=== PATIENT | female | born 1950 | race Caucasian/White ===

== ENCOUNTER 2021-11-01 04:03 | Day surgery (SDC) | payer BC ==
[2021-10-30 12:14] VITALS: BMI 32.3
[2021-11-01] MEDS ORDERED: BUPIVACAINE HCL/PF 0.75% 10 ML VIAL ONE (07:28)
[2021-11-01] MEDS ORDERED: LIDOCAINE HCL/PF 1% SDV 5ML VIAL ONE (07:29)
[2021-11-01] MEDS ORDERED: BUPIVACAINE HCL/PF 0.75% 10 ML VIAL NR ONE (08:58)
[2021-11-01] MEDS ORDERED: IOHEXOL 180 MG/1 ML ML IJ ONE (08:59)
[2021-11-01] MEDS ORDERED: LIDOCAINE 1% P/F 10 MG/ML VIAL PNB ONE (09:00)
[2021-11-01 10:22] VITALS: TEMP 97.1
[2021-11-01 10:25] VITALS: BP 140/74; PULSE 66
== END 2021-11-01 10:00 | disposition home or self-care (01) ==
LOC: JASU-SURG 04:03
PROVIDERS: ATTEND Pain Medicine Pain Medicine
PROC: 3E0T33Z Introduction of Anti-inflammatory into Peripheral Nerves and Plexi, Percutaneous Approach (ICD-10-PCS; 2021-11-01)
PROC: 3E0T3BZ Introduction of Anesthetic Agent into Peripheral Nerves and Plexi, Percutaneous Approach (ICD-10-PCS; principal; 2021-11-01 08:30)
DX: M47.816 Spondylosis without myelopathy or radiculopathy, lumbar region (principal)
CPT/HCPCS: 76000-TC-FY

== ENCOUNTER 2021-11-26 04:47 | Day surgery (SDC) | payer BC ==
[2021-11-22 10:19] VITALS: BMI 32.3
[~2021-11-26 04:47] MED LIST: BUPIVACAINE HCL/PF 0.75% 10 ML VIAL NR ONE; IOHEXOL 180 MG/1 ML ML IJ ONE; LIDOCAINE HCL 1% PRESERVATIVE FREE - 30ML VIAL IJ ONE
[2021-11-26] MEDS ORDERED: BUPIVACAINE HCL/PF 0.5% (5MG/ML) 10 ML VIAL ONE (07:08)
[2021-11-26] MEDS ORDERED: DEXAMETHASONE SOD PHOSPHATE 10 MG/1 ML VIAL ONE (07:08)
[2021-11-26] MEDS ORDERED: BUPIVACAINE HCL/PF 0.75% 10 ML VIAL ONE (07:08)
[2021-11-26] MEDS ORDERED: LIDOCAINE HCL/PF 1% SDV 5ML VIAL ONE (07:08)
[2021-11-26] MEDS ORDERED: LIDOCAINE HCL 1% PRESERVATIVE FREE - 30ML VIAL IJ ONE (09:11)
[2021-11-26] MEDS ORDERED: IOHEXOL 180 MG/1 ML ML IJ ONE (09:13)
[2021-11-26] MEDS ORDERED: BUPIVACAINE HCL/PF 0.75% 10 ML VIAL NR ONE (09:20)
[2021-11-26 10:46] VITALS: BP 117/76; PULSE 71; TEMP 98
== END 2021-11-26 10:15 | disposition home or self-care (01) ==
LOC: JASU-SURG 04:47
PROVIDERS: ATTEND Pain Medicine Pain Medicine
PROC: 3E0T33Z Introduction of Anti-inflammatory into Peripheral Nerves and Plexi, Percutaneous Approach (ICD-10-PCS; 2021-11-26)
PROC: 3E0T3BZ Introduction of Anesthetic Agent into Peripheral Nerves and Plexi, Percutaneous Approach (ICD-10-PCS; principal; 2021-11-26 08:30)
DX: M47.816 Spondylosis without myelopathy or radiculopathy, lumbar region (principal)
CPT/HCPCS: 76000-TC-FY; J1100

== ENCOUNTER 2023-02-19 11:50 | Inpatient (IN) | payer BC ==
[2023-02-19] MEDS ORDERED: VANCOMYCIN 1 GM in D5W (PRE-DOCKED) 1,000 MG/250 ML (RESTRICTED TO ID ONLY IVPB ONE (13:01)
[2023-02-19] MEDS ORDERED: VANCOMYCIN/WATER FOR INJ (PEG) 1,000 MG/200 ML BAG IVPB ONE (13:06)
[2023-02-19] MEDS ORDERED: morphine CARPU-JECT 4 MG/1 ML DISP.SYRIN IVPUSH ONE (13:37)
[2023-02-19 13:43] LABS: BASO % 0.6 % (0-2.0); EOS % 2.3 % (0-4.5); HEMATOCRIT 39.5 % (32.4-45.2); HEMOGLOBIN 13.4 GM/dL (10.7-15.3); LYMPH % 13.3 % (8-40); MCH 26.3 pg (25.7-33.7); MCHC 33.9 g/dl (32.0-36.0); MEAN CELL VOLUME 77.6 fl (80-96); MEAN PLT VOLUME 7.8 fl (7.5-11.1); MONO % 7.3 % (3.8-10.2); NEUT % 76.5 % (42.8-82.8); PLATELET COUNT 307 10^3/uL (134-434); RBC 5.09 M/mm3 (3.60-5.2); RDW 13.9 % (11.6-15.6)
[2023-02-19 14:03] LABS: ALBUMIN 3.7 g/dl (3.4-5.0); BLOOD UREA NITROGEN 11.7 mg/dL (7-18); CALCIUM 9.6 mg/dL (8.5-10.1)
[2023-02-19 14:07] LABS: CREATININE 0.7 mg/dL (0.55-1.3)
[2023-02-19 14:08] LABS: TOT PROT 7.7 g/dl (6.4-8.2)
[2023-02-19 14:11] LABS: BILIRUBIN,TOTAL 0.8 mg/dL (0.2-1)
[2023-02-19] MEDS ORDERED: KETOROLAC TROMETHAMINE 15 MG/ML VIAL IVPUSH PRN (14:50)
[2023-02-19] MEDS ORDERED: traMADol HCL 50 MG TABLET PO PRN (14:50)
[2023-02-19 16:09] VITALS: BMI 30.9
[2023-02-19] MEDS ORDERED: INSULIN (LEVEMIR) 100 UNITS/ML UNITS SQ ONE (18:06)
[2023-02-19] MEDS ORDERED: INSULIN (NOVOLOG) ASPART 100 UNITS/ML 10ML VIAL ONE (18:07)
[2023-02-19] MEDS: traMADol HCL 50 MG TABLET PO PRN (18:07)
[2023-02-19] MEDS ORDERED: ATORVASTATIN CA 10 MG TABLET (FP) PO SCH (22:00)
[2023-02-19] MEDS: ACETAMINOPHEN 325 MG TABLET (FP) PO PRN (22:41)
[2023-02-19] MEDS ORDERED: VANCOMYCIN/WATER FOR INJ (PEG) 1,000 MG/200 ML BAG IVPB SCH (23:00)
[2023-02-20] MEDS: traMADol HCL 50 MG TABLET PO PRN ×2 (05:54→21:23)
[2023-02-20] MEDS ORDERED: BUPIVACAINE HCL/PF 0.75% 10 ML VIAL ONE (07:14)
[2023-02-20] MEDS ORDERED: LIDOCAINE HCL/PF 1% SDV 5ML VIAL ONE (07:14)
[2023-02-20] MEDS ORDERED: BUPIVACAINE HCL/PF 0.5% (5MG/ML) 10 ML VIAL ONE (07:14)
[2023-02-20] MEDS ORDERED: DEXAMETHASONE SOD PHOSPHATE 10 MG/1 ML VIAL ONE (07:15)
[2023-02-20 07:37] LABS: BASO % 0.6 % (0-2.0); EOS % 4.1 % (0-4.5); HEMOGLOBIN 11.7 GM/dL (10.7-15.3); MCH 26.5 pg (25.7-33.7); MCHC 34.3 g/dl (32.0-36.0); MEAN CELL VOLUME 77.2 fl (80-96); MONO % 9.8 % (3.8-10.2); NEUT % 72.5 % (42.8-82.8); PLATELET COUNT 250 10^3/uL (134-434); RDW 13.6 % (11.6-15.6); WHITE BLOOD COUNT 7.2 K/mm3 (4.0-10.0)
[2023-02-20 07:56] LABS: POTASSIUM 3.9 mmol/L (3.5-5.1)
[2023-02-20 08:03] LABS: BLOOD UREA NITROGEN 11.5 mg/dL (7-18); MAGNESIUM 1.8 mg/dL (1.8-2.4)
[2023-02-20 08:06] LABS: CREATININE 0.5 mg/dL (0.55-1.3)
[2023-02-20 08:08] LABS: BILIRUBIN,TOTAL 0.9 mg/dL (0.2-1); TOT PROT 6.4 g/dl (6.4-8.2)
[2023-02-20] MEDS ORDERED: LEVOTHYROXINE NA 100 MCG TABLET (FP) PO SCH (10:00)
[2023-02-20] MEDS: ACETAMINOPHEN 325 MG TABLET (FP) PO PRN (10:34)
[2023-02-20] MEDS: ENOXAPARIN NA (PORCINE) 40 MG/0.4 ML DISP.SYRIN SQ SCH ×2 (10:35→11:21)
[2023-02-20] MEDS ORDERED: VANCOMYCIN/WATER FOR INJ (PEG) 1,000 MG/200 ML BAG IVPB SCH (11:00)
[2023-02-20] MEDS ORDERED: LEVOTHYROXINE NA 88 MCG TABLET (FP) PO SCH (11:17)
[2023-02-20] MEDS ORDERED: LIDOCAINE HCL 1%, 10 MG/ML (20ML VIAL) ONE (12:42)
[2023-02-20] MEDS ORDERED: ONDANSETRON 4 MG/2 ML VIAL IVPUSH PRN ×2 (15:28→17:16)
[2023-02-20] MEDS ORDERED: LACTATED RINGERS SOLUTION 1,000 ML IV SCH (15:30)
[2023-02-20] MEDS ORDERED: PROPOFOL 20 ML ONE (15:44)
[2023-02-20] MEDS ORDERED: MIDAZOLAM HCL 2 MG/2 ML SINGLE DOSE VIAL ONE (15:45)
[2023-02-20] MEDS ORDERED: ONDANSETRON 4 MG/2 ML VIAL ONE (16:28)
[2023-02-20] MEDS ORDERED: DEXAMETHASONE SOD PHOSPHATE 4 MG/1 ML VIAL ONE (16:28)
[2023-02-20] MEDS ORDERED: KETOROLAC TROMETHAMINE 15 MG/ML VIAL IVPUSH PRN (17:16)
[2023-02-20] MEDS ORDERED: KETOROLAC TROMETHAMINE 30 MG/1 ML VIAL ONE (17:57)
[2023-02-20] MEDS ORDERED: LACTATED RINGERS SOLUTION 1,000 ML/1,000 ML INFUS.BAG IV SCH (20:30)
[2023-02-20] MEDS: ATORVASTATIN CA 10 MG TABLET (FP) PO SCH (21:24)
[2023-02-21] MEDS: VANCOMYCIN/WATER FOR INJ (PEG) 1,000 MG/200 ML BAG IVPB SCH ×3 (00:18→22:35)
[2023-02-21] MEDS ORDERED: POLYETHYLENE GLYCOL (HEALTHYLAX) 3350 17 GM PACKET PO SCH (03:15)
[2023-02-21] MEDS: LEVOTHYROXINE NA 88 MCG TABLET (FP) PO SCH (06:09)
[2023-02-21] MEDS: traMADol HCL 50 MG TABLET PO PRN (06:11)
[2023-02-21 09:01] LABS: BASO % 0.2 % (0-2.0); HEMATOCRIT 33.5 % (32.4-45.2); HEMOGLOBIN 11.5 GM/dL (10.7-15.3); LYMPH % 8.5 % (8-40); MCH 26.4 pg (25.7-33.7); MCHC 34.2 g/dl (32.0-36.0); MEAN CELL VOLUME 77.3 fl (80-96); MONO % 4.6 % (3.8-10.2); NEUT % 86.7 % (42.8-82.8); PLATELET COUNT 312 10^3/uL (134-434); RBC 4.33 M/mm3 (3.60-5.2); RDW 13.6 % (11.6-15.6); WHITE BLOOD COUNT 7.8 K/mm3 (4.0-10.0)
[2023-02-21 09:10] LABS: POTASSIUM 4.1 mmol/L (3.5-5.1)
[2023-02-21 09:16] LABS: BLOOD UREA NITROGEN 7.4 mg/dL (7-18); CALCIUM 9.2 mg/dL (8.5-10.1)
[2023-02-21 09:17] LABS: MAGNESIUM 1.9 mg/dL (1.8-2.4)
[2023-02-21 09:20] LABS: CREATININE 0.6 mg/dL (0.55-1.3)
[2023-02-21] MEDS: POLYETHYLENE GLYCOL (HEALTHYLAX) 3350 17 GM PACKET PO SCH (10:31)
[2023-02-21] MEDS: ENOXAPARIN NA (PORCINE) 40 MG/0.4 ML DISP.SYRIN SQ SCH (10:32)
[2023-02-21] MEDS ORDERED: LACTATED RINGERS SOLUTION 1,000 ML/1,000 ML INFUS.BAG IV STA (12:21)
[2023-02-21] MEDS: ACETAMINOPHEN 325 MG TABLET (FP) PO PRN (14:33)
[2023-02-21] MEDS: ATORVASTATIN CA 10 MG TABLET (FP) PO SCH (22:35)
[2023-02-22] MEDS: LEVOTHYROXINE NA 88 MCG TABLET (FP) PO SCH (06:05)
[2023-02-22] MEDS: ENOXAPARIN NA (PORCINE) 40 MG/0.4 ML DISP.SYRIN SQ SCH (09:38)
[2023-02-22] MEDS: POLYETHYLENE GLYCOL (HEALTHYLAX) 3350 17 GM PACKET PO SCH (09:38)
[2023-02-22] MEDS: traMADol HCL 50 MG TABLET PO PRN (11:20)
[2023-02-22 12:00] LABS: EOS % 2.5 % (0-4.5); HEMATOCRIT 35.8 % (32.4-45.2); LYMPH % 21.1 % (8-40); MCH 25.9 pg (25.7-33.7); MCHC 33.4 g/dl (32.0-36.0); MEAN CELL VOLUME 77.5 fl (80-96); MEAN PLT VOLUME 7.7 fl (7.5-11.1); MONO % 8.4 % (3.8-10.2); PLATELET COUNT 340 10^3/uL (134-434); RBC 4.62 M/mm3 (3.60-5.2); RDW 13.8 % (11.6-15.6); WHITE BLOOD COUNT 8.4 K/mm3 (4.0-10.0)
[2023-02-22] MEDS: VANCOMYCIN/WATER FOR INJ (PEG) 1,000 MG/200 ML BAG IVPB SCH ×2 (12:34→23:10)
[2023-02-22 12:43] LABS: ALBUMIN 3.4 g/dl (3.4-5.0); BILIRUBIN,TOTAL 0.5 mg/dL (0.2-1); CALCIUM 9.4 mg/dL (8.5-10.1); CREATININE 0.5 mg/dL (0.55-1.3); TOT PROT 6.8 g/dl (6.4-8.2)
[2023-02-22] MEDS: DOCUSATE SODIUM 100 MG CAPSULE (FP) PO SCH ×2 (14:16→23:10)
[2023-02-22] MEDS: ATORVASTATIN CA 10 MG TABLET (FP) PO SCH (23:10)
[2023-02-23] MEDS: DOCUSATE SODIUM 100 MG CAPSULE (FP) PO SCH ×3 (05:54→21:00)
[2023-02-23] MEDS: LEVOTHYROXINE NA 88 MCG TABLET (FP) PO SCH (05:59)
[2023-02-23] MEDS: ACETAMINOPHEN 325 MG TABLET (FP) PO PRN ×2 (08:11→23:00)
[2023-02-23] MEDS: ENOXAPARIN NA (PORCINE) 40 MG/0.4 ML DISP.SYRIN SQ SCH (09:27)
[2023-02-23] MEDS: POLYETHYLENE GLYCOL (HEALTHYLAX) 3350 17 GM PACKET PO SCH (09:27)
[2023-02-23] MEDS: VANCOMYCIN/WATER FOR INJ (PEG) 1,000 MG/200 ML BAG IVPB SCH (11:28)
[2023-02-23] MEDS: traMADol HCL 50 MG TABLET PO PRN (12:33)
[2023-02-23] MEDS: ATORVASTATIN CA 10 MG TABLET (FP) PO SCH (20:59)
[2023-02-24] MEDS: DOCUSATE SODIUM 100 MG CAPSULE (FP) PO SCH ×2 (05:48→13:42)
[2023-02-24] MEDS: LEVOTHYROXINE NA 88 MCG TABLET (FP) PO SCH (06:12)
[2023-02-24 07:43] LABS: BASO % 1.4 % (0-2.0); EOS % 4.9 % (0-4.5); HEMOGLOBIN 11.7 GM/dL (10.7-15.3); LYMPH % 23.1 % (8-40); MCH 26.6 pg (25.7-33.7); MCHC 34.4 g/dl (32.0-36.0); MEAN CELL VOLUME 77.5 fl (80-96); MEAN PLT VOLUME 8.2 fl (7.5-11.1); MONO % 7.8 % (3.8-10.2); NEUT % 62.8 % (42.8-82.8); PLATELET COUNT 331 10^3/uL (134-434); RBC 4.38 M/mm3 (3.60-5.2); WHITE BLOOD COUNT 5.6 K/mm3 (4.0-10.0)
[2023-02-24 07:54] LABS: POTASSIUM 3.9 mmol/L (3.5-5.1)
[2023-02-24 07:57] LABS: ALBUMIN 3.1 g/dl (3.4-5.0); BLOOD UREA NITROGEN 5.9 mg/dL (7-18)
[2023-02-24 08:00] LABS: CREATININE 0.6 mg/dL (0.55-1.3)
[2023-02-24 08:02] LABS: BILIRUBIN,TOTAL 0.5 mg/dL (0.2-1); TOT PROT 6.3 g/dl (6.4-8.2)
[2023-02-24 08:42] LABS: ANISOCYTOSIS 0; HELMET CELLS 0; HOWELL-JOLLY BODIES 0; MACROCYTOSIS 0; OVALOCYTE 0; ROULEAU 0; SICKELED CELLS 0; TARGET CELLS 0; TEAR DROP CELLS 0; TOXIC GRANULATION 0
[2023-02-24] MEDS: POLYETHYLENE GLYCOL (HEALTHYLAX) 3350 17 GM PACKET PO SCH (09:33)
[2023-02-24] MEDS: ENOXAPARIN NA (PORCINE) 40 MG/0.4 ML DISP.SYRIN SQ SCH (09:34)
[2023-02-24] MEDS ORDERED: CEFAZOLIN SODIUM 2 GM in DEXTROSE 5%-WATER 100 ML IVPB SCH (10:00)
[2023-02-24 10:51] VITALS: RESP 20
[2023-02-24 13:42] VITALS: BP 141/72; PULSE 66; TEMP 98.1
[2023-02-24] MEDS: ACETAMINOPHEN 325 MG TABLET (FP) PO PRN (13:56)
== END 2023-02-24 16:55 | disposition home health service (06) | DRG 581 ==
LOC: JER 11:50 → JERBED 14:23 → J7W 15:39 → OBSVTOIN 15:46 → J7W 16:53
PROVIDERS: ADMIT Internal Medicine; ATTEND Internal Medicine
PROC: 07B50ZX Excision of Right Axillary Lymphatic, Open Approach, Diagnostic (ICD-10-PCS; 2023-02-20)
PROC: 0J9D0ZZ Drainage of Right Upper Arm Subcutaneous Tissue and Fascia, Open Approach (ICD-10-PCS; principal; 2023-02-20 16:00)
DX: L03.111 Cellulitis of right axilla (principal); L02.411 Cutaneous abscess of right axilla; Z88.0 Allergy status to penicillin; E78.5 Hyperlipidemia, unspecified; E03.9 Hypothyroidism, unspecified
CPT/HCPCS: 0241U-QW; 36415; 71250-TC; 76642-TC-RT; 80048; 80053; 83615; 83735; 85025; 87040; 87070; 87186; 87205; 88305-TC; 93005; 93010; 94760; 99285-25; G0378; G0480; J1100

== ENCOUNTER 2024-07-28 04:30 | Day surgery (SDC) | payer BC ==
[2024-07-27 13:36] VITALS: BMI 32.5
[2024-07-28 08:55] VITALS: TEMP 97.7
[2024-07-28 09:27] VITALS: RESP 18
[2024-07-28 09:28] VITALS: BP 107/67; PULSE 64
== END 2024-07-28 10:20 | disposition home or self-care (01) ==
LOC: JASU-ENDO 04:30
PROVIDERS: ATTEND Internal Medicine Gastroenterology
PROC: 0DBM8ZX Excision of Descending Colon, Via Natural or Artificial Opening Endoscopic, Diagnostic (ICD-10-PCS; principal; 2024-07-28 08:30)
DX: Z12.11 Encounter for screening for malignant neoplasm of colon (principal); D12.4 Benign neoplasm of descending colon; K57.30 Diverticulosis of large intestine without perforation or abscess without bleeding; K64.4 Residual hemorrhoidal skin tags
CPT/HCPCS: 88305-TC